=== PATIENT | male | born 1930 ===

== ENCOUNTER 2021-03-27 19:01 | Emergency (ER) | payer OTHER ==
--- OUTSIDE RECORDS SUMMARY | 2021-03-27 19:04 | XMS REPORT | Continuity of Care Document ---
:1930 Author Organization [facility] t Address [address] [place] [address] Care Team Providers Name Role Phone DWAYNEERNA Attending Clinician Unavailable MARY Attending Clinician Unavailable Elvira Villa Attending Clinician Unavailable Ismael VILLANUEVA Attending Clinician Unavailable Ismael Villanueva MD Attending Clinician Lab, Fam Pob I Attending Clinician Unavailable PARADISE Attending Clinician Unavailable Paradise PALMER Attending Clinician Doctor Unassigned, Name Attending Clinician Unavailable SAUCEDO Admitting Clinician Unavailable Payers Payer Name Policy Type Policy Number Effective Date Expiration Date S genny [employer] MEDICARE PPO [id number] 2013 00:00:00 [employer] MEDICARE ADV [id number] 2016 00:00:00 Problems Condition Condition Condition Status Onset Resolution Last Treating Co mments Source Name Details Category Date Date Treatment Clinician Date No known No known Disease Unive rs active active ity of problems problems [facility] Primary Primary Diagnosis [facility] Ellen k[facility] - itis of itis of [facility] left knee left knee [facility] Pain in Pain in Problem Active [facility] left knee left knee Gokul nazia [facility] Presence Presence Problem Active [facility] right [facility] - artificial artificial Me moria knee joint knee joint l Outpati ent Clinics Allergies, Adverse Reactions, Alerts Allergy Allergy Status Severity Reaction(s) Onset Inactive Treating Comm ents Source Name Type Date Date Clinician No Known DA Active U [facility] [place] [facility] No Known DA Active U 2020-0 [facility] [place] [facility] No Known DA Active U 2020-0 [facility] Allergie 2[facility]11 [place] [facility] 00[facility] No Known DA Active U 2020-0 [facility] Allergie 2-11 [place] [facility] 00:[facility] ESOMEPRA DRUG Active Med Rash 2016-03 Univers ZOLE INGREDI 0-03 ity of MAGNESIU 00:00: [place] 00 [facility] Branch Esomepra Propensi Active Rash 2016-03 Univer s zole ty to 0-03 ity of [place]es[place] adverse 00:00: [facility] reaction 00 [facility] s to Branch drug No Known DA Active U 2009-03 [facility] No Known DA Active U 2009-03 [facility] Intol[facility] 0-04 [place] nces 00:[facility] Social History Social Habit Start Date Stop Date Quantity Comments Source Tobacco use and 2016-12-27 2016-12-27 Never used Universit y of exposure 00:00:00 00:00:00 [facility] Alcohol intake 2016-12-27 2016-12-27 Current drinker of Un iversity of 00:00:00 00:00:00 alcohol (finding) [facility] Alcohol Comment 2016-12-06 2016-12-06 Occasional Drinker U niversity of 00:00:00 00:00:00 [facility] Sex Assigned At [birth year] [facility] 00:00:00 00:00:00 Smoking Status Start Date Stop Date Source Unknown if ever smoked [facility] Never smoker [facility] Medications Ordered Filled Start Stop Current Ordering Indication Dosage Frequency Signature Comments Components Source Medication Medication Date Date Medication? Clinician (SIG) Name Name levomefol-B 2016-03 Yes 1{capsu Take 1 U nivers 6-[id number] 0-18 le} capsule by it y of al oil 16:59: mouth [place] (METANX, 40 daily. Medical ALGAL OIL,) [place] 3 mg-35 mg-2 mg -90.314 mg per capsule aspirin 81 2016-03 Yes 81mg Take 81 mg U nivers mg EC 0-18 by mouth ity of tablet 16:59: daily. [address] mometasone 2016-03 Yes 1{spray Use 1 Uni vers (NASONEX) 0-18 } [place] in ity of 50 16:59: each [place] mcg/actuati 40 nostril as Me dical on nasal needed. Branch spray losartan 50 2016-03 Yes 50mg Take 50 mg Univers mg tablet 0-18 by mouth 2 ity of 16:59: (two) [place] 40 times Medical daily. Branch amLODIPine 2016-03 Yes 5mg Take 5 mg Un jimmie 5 mg tablet 0-18 by mouth ity of 16:59: daily. [address] omeprazole 2016-03 Yes 40mg Take 40 mg U nivers 40 mg 0-18 by mouth ity of capsule 16:59: daily. [address] levomefol-B 2016-03 Yes 1{capsu Take 1 U nivers 6-xhB09-ysf 0-18 le} capsule by it y of al oil 16:59: mouth [place] (METANX, 40 daily. Medical ALGAL OIL,) Branch 3 mg-35 mg-2 mg -90.314 mg per capsule aspirin 81 2016-03 Yes 81mg Take 81 mg U nivers mg EC 0-18 by mouth ity of tablet 16:59: daily. [address] mometasone 2016-03 Yes 1{spray Use 1 Uni vers (NASONEX) 0-18 } [place] in ity of 50 16:59: each [place] mcg/actuati 40 nostril as Me dical on nasal needed. Branch spray losartan 50 2016-03 Yes 50mg Take 50 mg Univers mg tablet 0-18 by mouth 2 ity of 16:59: (two) [place] 40 times Medical daily. Branch amLODIPine 2016-03 Yes 5mg Take 5 mg Un jimmie 5 mg tablet 0-18 by mouth ity of 16:59: daily. [address] omeprazole 2016-03 Yes 40mg Take 40 mg U nivers 40 mg 0-18 by mouth ity of capsule 16:59: daily. [address] levomefol-B 2016-03 Yes 1{capsu Take 1 U nivers 6-uhB77-qby 0-18 le} capsule by it y of al oil 16:59: mouth [place] (METANX, 40 daily. Medical ALGAL OIL,) Branch 3 mg-35 mg-2 mg -90.314 mg per capsule aspirin 81 2016-03 Yes 81mg Take 81 mg U nivers mg EC 0-18 by mouth ity of tablet 16:59: daily. [address] mometasone 2016-03 Yes 1{spray Use 1 Uni vers (NASONEX) 0-18 } [place] in ity of 50 16:59: each [place] mcg/actuati 40 nostril as Me dical on nasal needed. Branch spray losartan 50 2016-03 Yes 50mg Take 50 mg Univers mg tablet 0-18 by mouth 2 ity of 16:59: (two) [place] 40 times Medical daily. Branch amLODIPine 2016-03 Yes 5mg Take 5 mg Un jimmie 5 mg tablet 0-18 by mouth ity of 16:59: daily. [address] omeprazole 2016-03 Yes 40mg Take 40 mg U nivers 40 mg 0-18 by mouth ity of capsule 16:59: daily. [address] levomefol-B 2016-03 Yes 1{capsu Take 1 U nivers 6-ycL30-zgp 0-18 le} capsule by it y of al oil 16:59: mouth [place] (METANX, 40 daily. Medical ALGAL OIL,) Branch 3 mg-35 mg-2 mg -90.314 mg per capsule aspirin 81 2016-03 Yes 81mg Take 81 mg U nivers mg EC 0-18 by mouth ity of tablet 16:59: daily. [address] mometasone 2016-03 Yes 1{spray Use 1 Uni vers (NASONEX) 0-18 } [place] in ity of 50 16:59: each [place] mcg/actuati 40 nostril as Me dical on nasal needed. Branch spray losartan 50 2016-03 Yes 50mg Take 50 mg Univers mg tablet 0-18 by mouth 2 ity of 16:59: (two) [place] 40 times Medical daily. Branch amLODIPine 2016-03 Yes 5mg Take 5 mg Un jimmie 5 mg tablet 0-18 by mouth ity of 16:59: daily. [address] omeprazole 2016-03 Yes 40mg Take 40 mg U nivers 40 mg 0-18 by mouth ity of capsule 16:59: daily. [address] Minocycline Minocycline Yes David not [facility] HCl HCl [facility] defined [facility] Losartan Losartan Yes David not [facility] Potassium Potassium [place] defined [facility] Nasonex Nasonex Yes David not [facility] Sanchez defined [facility] Aspirin 81 Aspirin 81 Yes David not [facility] Sanchez defined [facility] Metanx Metanx Yes David not [facility] Sanchez defined [facility] Amlodipine Amlodipine Yes David not [facility] Besylate Besylate [place] defined [facility] Omeprazole Omeprazole Yes David not [facility] Sanchez defined [facility] Procedures This patient has no known procedures. Encounters Start End Encounter Admission Attending Care Care Encounter Source Date/Time Date/Time Type Type Clinicians Facility Department ID 2020-07-13 Outpatient HOMAR [facility] [id number] [place] 14:47:38 [facility] 2020-07-13 [facility] [id number] [place] 14:46:53 [facility] 2020-07-13 [facility] [id number] [place] 14:46:53 [facility] 2019-04-24 Inpatient LEI CainTO [id number] [facility] 13:11:00 Allan [address] [place] [facility] 2020-07-31 2020-07-31 [facility] [id number]-[id number] Univers 09:15:00 09:15:00 DEMARIO [id number] [facility] 2020-07-31 2020-07-31 Outpatient Marie [facility] [id number] Univers 09:15:00 09:15:00 DEMARIO [facility] 2020-07-29 2020-07-29 Telephone Rich [facility] [id number] Univers 00:00:00 00:00:00 [facility] [id number] it y of Surgical [id number] Dread as Specialti [phone] Ne dical es 198 [facility] 2020-07-13 2020-07-13 Telephone JAKOB Shaw [facility] 4 [id number] [place] 00:00:00 00:00:[id number] [facility] [id number] 1 2020-02-24 2020-02-24 Telephone Lab, [facility] [id number] Univers 00:00:00 00:00:00 Fam Pob I Health [id number] ity of [place] [id number] Dread as Professio [phone] [address] 2020-02-22 2020-02-22 Outpatient Marie [facility] [id number] Univers 13:00:00 13:00:00 KAET ity of [facility] 2020-02-22 2020-02-22 Laboratory Lab, [facility] Pob I [facility] [id number] [facility] 12:34:43 12:54:43 Only Paradise Kate [facility] [id number] ity of [place] [id number] Dread as Professio [phone] [address] 2020-02-22 2020-02-22 Letter Doctor EN [id number] Univers 00:00:00 00:00:00 (Out) Unassigned, BARBARA [id number] ity of [place] [facility] [id number] Dread as [phone] [address] 2018-11-12 2018-11-12 [facility] [place] [id number] 11:00:00 11:00:00 [facility] Clinics 2018-11-06 2018-11-06 [facility] [place] [id number] 13:30:00 13:30:00 t [facility] Clinics 2018-10-29 2018-10-29 Outpatient [facility] [place] [id number] 11:00:00 11:00:00 t [facility] Clinics 2018-10-23 2018-10-23 Outpatient Elder Vega [id number] 13:09:00 13:09:00 t [facility] Clinics 2018-10-08 2018-10-08 Outpatient Elder Vega [id number] 13:30:00 13:30:00 t [facility] Clinics Results This patient has no known results.
[2021-03-27] MEDS ORDERED: ONDANSETRON 4 MG/2 ML VIAL ONE (19:30)
[2021-03-27] MEDS ORDERED: MORPHINE 2 MG/ML SYR ONE ×2 (19:30→20:14)
[2021-03-27 19:36] LABS: Hematocrit 40.7 % (39.6-49.0); Lymphocytes % 27.9 % (15.3-44.8); MPV 7.8 fL (7.6-11.3); RBC Red Blood Cell Count 4.52 M/uL (4.33-5.43)
[2021-03-27 19:50] LABS: Protime INR 0.99
[2021-03-27] MEDS ORDERED: NA CHLORIDE 0.9% 1,000 ML ONE (19:52)
[2021-03-27] MEDS ORDERED: TETANUS & DIPHTHERIA TOX,ADULT 0.5 ML VIAL ONE (19:52)
[2021-03-27 20:17] LABS: Albumin 3.7 g/dL (3.4-5.0); Bilirubin Direct 0.2 mg/dL (0-0.2); Bilirubin Total 0.5 mg/dL (0.2-1.0); Magnesium 2.3 mg/dL (1.8-2.4); Protein, Total 6.4 g/dL (6.4-8.2); Troponin High Sensitivity 10.9 pg/mL (<58.9)
--- NOTE | 2021-03-27 20:54 | EDPHYS ---
Physician Documentation [facility] Name: Micha Knight Age: 89 yrs Sex: Male : 1930 Arrival Date: 03/27/2021 Time: 19:03 Bed 14 Private MD: ED Physician Jorge Dos Santos HPI: 03/27 19:13 This 89 yrs old Male presents to ER via EMS with complaints of Left hip. pm1 19:13 The patient or guardian reports pain. that occurred at a relative's home, sustained pm1 from unknown reason, the left lower extremity is shortened, left leg is externally rotated, Patient is not able to bear weight. The complaints affect the left hip. Onset: The symptoms/episode began/occurred just prior to arrival. Modifying factors: The symptoms are alleviated by remaining still. Associated signs and symptoms: Pertinent negatives: numbness, tingling. Severity of symptoms: in the emergency department the symptoms are unchanged. The patient has not experienced similar symptoms in the past. The patient has not recently seen a physician. Patient was placing a box into the garage and fell onto his left hip and side. No head injury, headache, neck pain, LOC. Patient reports hitting his left, but no pain present to it. Historical: - Allergies: 19:47 No Known Allergies; vc1 - PMHx: 19:46 Hypertension; vc1 - Immunization history:: Adult Immunizations up to date, Client reports receiving the 2nd dose of the Covid vaccine, Flu vaccine is up to date. - Social history:: Smoking status: Patient denies any tobacco usage or history of. ROS: 19:13 Constitutional: Negative for fever, chills, and weight loss, Neck: Negative for injury, pm1 pain, and swelling, Cardiovascular: Negative for chest pain, palpitations, and edema, Respiratory: Negative for shortness of breath, cough, wheezing, and pleuritic chest pain, Abdomen/GI: Negative for abdominal pain, nausea, vomiting, diarrhea, and constipation, Back: Negative for injury and pain. 19:13 Neuro: Negative for headache, weakness, numbness, tingling, and seizure. 19:13 MS/extremity: Positive for pain, of the left hip. 19:13 Skin: Positive for abrasion(s), of the left knee and left elbow. 19:13 All other systems are negative. Exam: 19:13 Constitutional: This is a well developed, well nourished patient who is awake, alert, pm1 and in no acute distress. Head/Face: Normocephalic, atraumatic. 19:13 Cardiovascular: Exam negative for acute changes, Rate: normal, Rhythm: regular, Pulses: no pulse deficits are appreciated. 19:13 Respiratory: Exam negative for acute changes, respiratory distress, shortness of breath, Breath sounds: are clear throughout. 19:13 Abdomen/GI: Exam negative for acute changes, Inspection: abdomen appears normal, Palpation: abdomen is soft and non-tender, in all quadrants. 19:13 Musculoskeletal/extremity: Extremities: grossly normal except: noted in the left hip: tenderness, left lower extremity with shortening and external rotation, Pulses: noted to be 2+ in the left dorsalis pedis artery. 19:13 Skin: Appearance: normal except for affected area, injury, abrasion(s), small abrasion noted, of the left knee and hip. 19:13 Neuro: Exam negative for acute changes, Orientation: is normal, Mentation: is normal, Motor: is normal, moves all fours, Sensation: is normal, no obvious gross deficits. Vital Signs: 20:24 BP 144 / 77; Pulse 82; Resp 12; Temp 98.1; Pulse Ox 98% on R/A; Weight 73.94 kg; Height vc1 5 ft. 9 in. (175.26 cm); Pain 8/10; 22:12 BP 134 / 76; Pulse 94; Resp 21; Pulse Ox 99% on R/A; vc1 20:24 Body Mass Index 24.07 (73.94 kg, 175.26 cm) vc1 MDM: 19:16 Patient medically screened. [facility] 20:49 Data reviewed: vital signs. Data interpreted: Pulse oximetry: on room air is 98 %. pm1 Interpretation: normal. 20:49 Counseling: I had a detailed discussion with the patient and/or guardian regarding: the pm1 historical points, exam findings, and any diagnostic results supporting the discharge/admit diagnosis, lab results, radiology results, the need to transfer to another facility, [facility] does not immediately have the required specialist, No orthopedics available. 03/27 19:03 Order name: Basic Metabolic Panel; Complete Time: : 03/27 19:03 Order name: CBC with Diff; Complete Time: 20:22 03/27 19:03 Order name: LFT's; Complete Time: 20:22 03/27 19:03 Order name: Magnesium; Complete Time: 20:22 03/27 19:03 Order name: NT PRO-BNP; Complete Time: 20:22 03/27 19:03 Order name: PT-INR; Complete Time: 20:22 03/27 19:03 Order name: Troponin HS; Complete Time: 20:22 03/27 19:03 Order name: XRAY Chest (1 view); Complete Time: 21:13 03/27 19:04 Order name: COVID-19 SARS RT PCR (Document "Date of Onset" if Symptomatic); Complete Time: 20:35 03/27 19:07 Order name: Hip Left 2 View XRAY; Complete Time: 21:39 03/27 19:07 Order name: Pelvis XRAY; Complete Time: 21:39 03/27 19:07 Order name: Type And Screen; Complete Time: 20:22 03/27 19:03 Order name: EKG; Complete Time: 19:05 03/27 19:03 Order name: Cardiac monitoring; Complete Time: 20:23 03/27 19:03 Order name: EKG - Nurse/Tech; Complete Time: 20:23 03/27 19:03 Order name: IV Saline Lock; Complete Time: 19:41 03/27 19:03 Order name: Labs collected and sent; Complete Time: 19:41 03/27 19:03 Order name: O2 Per Protocol; Complete Time: 21:44 03/27 19:03 Order name: O2 Sat Monitoring; Complete Time: 21:44 la Administered Medications: 19:41 Drug: Zofran (Ondansetron) 4 mg Route: IVP; Site: right antecubital; vc1 21:35 Follow up: Response: No adverse reaction vc1 19:42 Drug: morphine 2 mg Route: IVP; Site: right antecubital; vc1 20:16 Drug: Tetanus-Diphtheria Toxoid Adult 0.5 ml {Software Recruiter: whoactually. Exp: vc1 07/26/2022. Lot #: [id number]. } Route: IM; Site: right deltoid; 21:35 Follow up: Response: No adverse reaction vc1 20:17 Drug: NS 0.9% 1000 ml Route: IV; Rate: 125 ml/hr; Site: right antecubital; vc1 21:44 Follow up: IV Status: Infusion continued upon transfer vc1 20:25 Drug: morphine 2 mg Route: IVP; Site: right antecubital; vc1 21:44 Follow up: Response: No adverse reaction; Pain is unchanged, physician notified vc1 20:59 CANCELLED (Physician Discretion): morphine 4 mg IVP once; RASS on ADMIN: Combtv4, Very pm1 Agttd3, Agttd2, Rstlss1, AlertClm0, Drwsy-1, Lt Sdtn-2, Mod Sdtn-3, Dp Sdtn-4, UnArsble-5 21:26 Drug: fentaNYL (PF) 50 mcg Route: IVP; Site: right antecubital; vc1 21:44 Follow up: Response: No adverse reaction vc1 Disposition: 03/28 07:11 Co-signature as Attending Physician, Jorge Dos Santos MD I agree with the assessment and barb plan of care. Disposition Summary: 03/27/21 20:53 Transfer Ordered Transfer Location: [facility] pm1 Reason: Specialty pm1 Condition: Stable pm1 Problem: new pm1 Symptoms: have improved pm1 Accepting Physician: Michael(03/27/21 22:21) vc1 Diagnosis - Left hip fracture pm1 - Fall on same level, unspecified pm1 Forms: - Medication Reconciliation Form pm1 - SBAR form pm1 Signatures: Dispatcher [employer] Jorge Mendes MD MD cha Attema, Lee, BEHAVIOR MANAGEMENT SPECIALIST-C BEHAVIOR MANAGEMENT SPECIALIST-Cla1 Shashank Holden, PERSONAL COMPUTER SPECIALIST PERSONAL COMPUTER SPECIALIST pm1 Nicolasa Nolan RN RN vc1 Corrections: (The following items were deleted from the chart) 03/27 20:59 20:53 morphine 4 mg IVP once; RASS on ADMIN: Combtv4, Very Agttd3, Agttd2, Rstlss1, pm1 AlertClm0, Drwsy-1, Lt Sdtn-2, Mod Sdtn-3, Dp Sdtn-4, UnArsble-5 ordered. pm1 21:14 20:53 pm1 pm1 22:21 21:14 Michael pm1 vc1
--- NOTE | 2021-03-27 20:54 | ER ---
Nurse's Notes [facility] Name: Micha Knight Age: 89 yrs Sex: Male : 1930 Arrival Date: 03/27/2021 Time: 19:03 Bed 14 Private MD: Diagnosis: Left hip fracture;Fall on same level, unspecified Presentation: 03/27 19:43 Chief complaint: Patient states: I was walking out of the garage and fell on the vc1 cement, I fell on my left side, I hit my knee too, I can't move it. Coronavirus screen: Vaccine status: Patient reports receiving the 2nd dose of the covid vaccine. Date March 27, 2021 Received two doses of Moderna and booster. Ebola Screen: No symptoms or risks identified at this time. Initial Sepsis Screen: Does the patient meet any 2 criteria? No. Patient's initial sepsis screen is negative. Does the patient have a suspected source of infection? No. Patient's initial sepsis screen is negative. Risk Assessment: Do you want to hurt yourself or someone else? Patient reports no desire to harm self or others. Onset of symptoms was March 27, 2021. 19:43 Method Of Arrival: EMS: [facility] vc1 19:43 Acuity: ELVIA 2 vc1 Triage Assessment: 19:47 General: Appears uncomfortable, Behavior is appropriate for age. Pain:. vc1 Musculoskeletal: Range of motion: limited in all extremities, Reports numbness in left hip. Musculoskeletal: left leg appears shorter than right leg with external rotation noted. Historical: - Allergies: 19:47 No Known Allergies; vc1 - PMHx: 19:46 Hypertension; vc1 - Immunization history:: Adult Immunizations up to date, Client reports receiving the 2nd dose of the Covid vaccine, Flu vaccine is up to date. - Social history:: Smoking status: Patient denies any tobacco usage or history of. Screenin:00 Abuse screen: Denies threats or abuse. Nutritional screening: No deficits noted. vc1 Tuberculosis screening: No symptoms or risk factors identified. 19:00 Fall Risk None identified. vc1 Assessment: 19:00 General: Appears in no apparent distress. uncomfortable, slender, well groomed, vc1 Behavior is appropriate for age. Pain: Complains of pain in lateral aspect of left knee and posterior aspect of left knee and left hip Pain does not radiate. Pain currently is 8 out of 10 on a pain scale. Quality of pain is described as sharp. 19:00 Neuro: No deficits noted. Cardiovascular: Reports None. Respiratory: No deficits noted. vc1 GI: No deficits noted. : No deficits noted. Derm: Wound noted left elbow and left knee Reports pain that is 8 out of 10 on a pain scale. Musculoskeletal: Circulation, motion, and sensation intact. Range of motion: limited in left hip and left knee Swelling present in left knee and left hip. 20:00 Reassessment: No changes from previously documented assessment. Patient and/or family vc1 updated on plan of care and expected duration. Pain level reassessed. Patient is alert, oriented x 3, equal unlabored respirations, skin warm/dry/pink. 21:00 Reassessment: No changes from previously documented assessment. Patient and/or family vc1 updated on plan of care and expected duration. Pain level reassessed. Patient is alert, oriented x 3, equal unlabored respirations, skin warm/dry/pink. Vital Signs: 20:24 BP 144 / 77; Pulse 82; Resp 12; Temp 98.1; Pulse Ox 98% on R/A; Weight 73.94 kg; Height vc1 5 ft. 9 in. (175.26 cm); Pain 8/10; 22:12 BP 134 / 76; Pulse 94; Resp 21; Pulse Ox 99% on R/A; vc1 20:24 Body Mass Index 24.07 (73.94 kg, 175.26 cm) vc1 ED Course: 19:03 Patient arrived in ED. la1 19:08 Shashank Holden NP is PHCP. pm1 19:08 Chase Ortiz MD is Attending Physician. pm1 19:16 Attending Physician role handed off by Chase Ortiz MD barb 19:16 Jorge Dos Santos MD is Attending Physician. barb 19:41 Basic Metabolic Panel Sent. vc1 19:41 CBC with Diff Sent. vc1 19:41 LFT's Sent. vc1 19:41 Magnesium Sent. vc1 19:41 NT PRO-BNP Sent. vc1 19:41 PT-INR Sent. vc1 19:41 Troponin HS Sent. vc1 19:41 COVID-19 SARS RT PCR (Document "Date of Onset" if Symptomatic) Sent. vc1 19:42 Type And Screen Sent. vc1 19:42 Pelvis XRAY Sent. vc1 19:42 Hip Left 2 View XRAY Sent. vc1 19:43 XRAY Chest (1 view) Sent. vc1 19:46 Triage completed. vc1 20:48 XRAY Chest (1 view) In Process Unspecified. EDMS 20:48 Hip Left 2 View XRAY In Process Unspecified. EDMS 20:48 Pelvis XRAY In Process Unspecified. EDMS 20:57 initiated a transfer with Mary Ann from [facility]. mw2 21:08 administrative approval given by Mary Ann Larson/ patient has been accepted to [address] to the ER/ Dr. Rodriguez accepted the patient in transfer/ report to be called to [phone]. 22:11 No provider procedures requiring assistance completed. Patient transferred, IV remains vc1 in place. 22:11 Arm band placed on right wrist. vc1 22:12 Patient has correct armband on for positive identification. nuclear monitoring technician on. Pulse vc1 ox on. NIBP on. Administered Medications: 19:41 Drug: Zofran (Ondansetron) 4 mg Route: IVP; Site: right antecubital; vc1 21:35 Follow up: Response: No adverse reaction vc1 19:42 Drug: morphine 2 mg Route: IVP; Site: right antecubital; vc1 20:16 Drug: Tetanus-Diphtheria Toxoid Adult 0.5 ml {Dry End Tester: [employer]. Exp: vc1 07/26/2022. Lot #: [id number]. } Route: IM; Site: right deltoid; 21:35 Follow up: Response: No adverse reaction vc1 20:17 Drug: NS 0.9% 1000 ml Route: IV; Rate: 125 ml/hr; Site: right antecubital; vc1 21:44 Follow up: IV Status: Infusion continued upon transfer vc1 20:25 Drug: morphine 2 mg Route: IVP; Site: right antecubital; vc1 21:44 Follow up: Response: No adverse reaction; Pain is unchanged, physician notified vc1 20:59 CANCELLED (Physician Discretion): morphine 4 mg IVP once; RASS on ADMIN: Combtv4, Very pm1 Agttd3, Agttd2, Rstlss1, AlertClm0, Drwsy-1, Lt Sdtn-2, Mod Sdtn-3, Dp Sdtn-4, UnArsble-5 21:26 Drug: fentaNYL (PF) 50 mcg Route: IVP; Site: right antecubital; vc1 21:44 Follow up: Response: No adverse reaction vc1 Outcome: 20:53 ER care complete, transfer ordered by . pm1 22:12 Transferred by ground [facility] to [facility], Transfer form completed. X-rays sent vc1 w/ patient. 22:12 Condition: good 22:12 Instructed on the need for transfer. 22:21 Patient left the ED. vc1 Signatures: Dispatcher [employer] EDMS Jorge Dos Santos MD MD cha Attema, Lee, PROMOTOR [employer] SALES-C [employer]OM[employer]OR [employer] SALES-Cla1 Shashank Holden, IRON WORKER FOREMAN IRON WORKER FOREMAN pm1 David Selby mw2 Nicolasa Nolan RN RN vc1
--- NOTE | 2021-03-27 21:09 | RAD REPORT ---
EXAM DESCRIPTION: [place] Single View03/27/2021 8:48 pm CLINICAL HISTORY: Chest pain COMPARISON: July 2020 FINDINGS: Chronic appearing interstitial lung opacities. The lungs appear clear of acute infiltrate. The heart is normal size IMPRESSION: No acute abnormalities displayed
[2021-03-27] MEDS ORDERED: FENTANYL CITR 100 MCG/2 ML ONE ×2 (21:15→22:06)
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
[2021-03-27 22:42] VITALS: TEMP 98.1
[2021-03-27 22:43] VITALS: BP 134/76; O2SAT 99
== END 2021-03-27 22:21 | disposition short-term general hospital (02) ==
LOC: ER 19:01
DX: S72.002A Fracture of unspecified part of neck of left femur, initial encounter for closed fracture (principal); W18.30XA Fall on same level, unspecified, initial encounter; I10 Essential (primary) hypertension; Z23 Encounter for immunization; Z20.822 Contact with and (suspected) exposure to COVID-19
CPT/HCPCS: 96361; 93005; 85025; 80048; 36415; 86900; 83735; 86850; 85610; 86901; 80076; 84484; 83880; 71045; 72170; 73502; 90471; 90714; 96375; 96374; 99285; U0003; J3010 ×2; J2270 ×2; J7030; J2405